=== PATIENT | male | born 1985 ===

== ENCOUNTER 2017-01-28 03:03 | Emergency (ER) | payer OTHER ==
--- NOTE | 2017-01-28 03:37 | ED PDOC ---
HPI: General Adult Time Seen by Provider: 01/28/17 03:18 History Per: Patient Additional Complaint(s): Pt. states approximately 1-2 weeks ago he was walking when he suddenly felt a "pop" in the R knee and has had progressively worsening pain in the same knee. Reports that today at work pain in the knee worsened. States he spends all day on his feet. Also states for approximately the same time he's had bright red stools that he notices in the toilet and mostly when he wipes and also has dysuria but no hematuria. Further reports that his stools have been very hard. last BM was 3 days ago. Of note, pt. states he is HIV positive and had his CD4 and viral load checked in 12/2016 and were WNL. Denies abdominal pain, N/V/D, melena, hematochezia, fever, incontinence, back pain, flank pain, weakness, blunt trauma, calf pain, SOB, palpitations, fever, eye pain, eye discharge. Past Medical History Reviewed: Historical Data, Nursing Documentation, Vital Signs Vital Signs: Last Vital Signs Temp 98.0 F 01/28/17 03:38 Pulse 111 H 01/28/17 03:38 Resp 16 01/28/17 03:38 BP 122/76 01/28/17 03:38 Pulse Ox 98 01/28/17 03:38 - Medical History PMH: HIV - Surgical History Surgical History: Cholecystectomy - Family History Family History: States: No Known Family Hx - Home Medications Home Medications: Ambulatory Orders Medication Instructions Recorded Docusate [Colace] 1 cap PO BID PRN #30 cap 01/28/17 Naproxen [Naprosyn] 500 mg PO BID PRN #30 tab 01/28/17 Polyethylene Glycol 3350 [Miralax] 1 packet PO DAILY PRN #30 each 01/28/17 - Allergies Allergies/Adverse Reactions: Allergies Allergy/AdvReac Type Severity Reaction Status Date / Time No Known Allergies Allergy Verified 01/28/17 03:38 Review of Systems ROS Statement: Except As Marked, All Systems Reviewed And Found Negative Gastrointestinal: Positive for: Constipation. Negative for: Rectal Pain Genitourinary Male: Positive for: Dysuria Physical Exam - Reviewed Nursing Documentation Reviewed: Yes Vital Signs Reviewed: Yes - Physical Exam Appears: Positive for: Well, Non-toxic, No Acute Distress Head Exam: Positive for: ATRAUMATIC, NORMAL INSPECTION, NORMOCEPHALIC Skin: Positive for: Normal Color, Warm. Negative for: Rash Eye Exam: Positive for: EOMI, Normal appearance, PERRL ENT: Positive for: Normal ENT Inspection Neck: Positive for: Normal, Painless ROM Cardiovascular/Chest: Positive for: Regular Rate, Rhythm Respiratory: Positive for: CNT, Normal Breath Sounds Pulses-Dorsalis Pedis (L): 2+ Pulses-Dorsalis Pedis (R): 2+ Gastrointestinal/Abdominal: Positive for: Normal Exam, Bowel Sounds, Soft. Negative for: Tenderness, Distended Back: Positive for: Normal Inspection. Negative for: L CVA Tenderness, R CVA Tenderness Rectal: Positive for: Rectal Tone Is: (intact), Blood Streaked Stool. Negative for: Black Stool, Hemorrhoids, Mass, Tenderness Extremity: Positive for: Other (R knee with moderate swelling and tenderness on anterior surface without warmth, erythema, break in skin integrity; limited ROM secondary to pain) Neurologic/Psych: Positive for: Alert, Oriented - Laboratory Results Result Diagrams: 01/28/17 04:11 01/28/17 04:11 Urine dip results: Negative for: Leukocyte Esterase, Blood - Progress ED Course And Treament: Knee x-ray: no fx Obstructive series: FOS; no obstruction 0430 Pt. informed of results and instructed to f/u with ortho. Knee immobilizer and crutches ordered. Disposition - Clinical Impression Clinical Impression: Knee injury, Constipation - Patient ED Disposition Is Patient to be Admitted: No - Disposition Referrals: [facility] [Outside] Cheng Escamilla III, MD [Staff Provider] - Disposition: Routine/Home Disposition Time: 04:39 Condition: STABLE Additional Instructions: Follow up with your PMD and an orthopedist for further evaluation. Prescriptions: Docusate [Colace] 1 cap PO BID PRN #30 cap PRN Reason: Constipation Naproxen [Naprosyn] 500 mg PO BID PRN #30 tab PRN Reason: Pain Polyethylene Glycol 3350 [Miralax] 1 packet PO DAILY PRN #30 each PRN Reason: Constipation Instructions: Constipation (ED), Knee Sprain (ED), Knee Immobilizer (ED), Crutch Instructions (ED) Forms: [employer] (Divehi) Print Language: MOZAMBICAN
[2017-01-28 03:39] VITALS: BMI 24.9
[2017-01-28 03:40] VITALS: BP 122/76; PULSE 111; RESP 16; TEMP 98; O2SAT 98
[2017-01-28 04:15] LABS: BASO % 0.3 % (0.0-2.0); EOS % 0.3 % (0.0-4.0); HEMATOCRIT 40.4 % (35.0-51.0); LYMPH # 2.2 K/uL (1.0-4.3); LYMPH % 20.5 % (20.0-40.0); MEAN CELL VOLUME 89.2 fl (80.0-94.0); MEAN CORPUSCULAR HEMOGLOBIN 31.8 pg (27.0-31.0); MEAN CORPUSCULAR HGB CONC 35.6 g/dL (33.0-37.0); MEAN PLATELET VOLUME 7.6 fl (7.2-11.7); MONO # 1.2 K/uL (0.0-0.8); MONO % 10.9 % (0.0-10.0); NEUT # 7.2 K/uL (1.8-7.0); NRBC % 0.1 % (0.0-0.0); RED CELL DISTRIBUTION WIDTH 12.8 % (11.5-14.5); WHITE BLOOD COUNT 10.6 K/uL (4.8-10.8)
[2017-01-28 04:25] LABS: ALB/GLOB RATIO 1.2 (1.0-2.1); ALKALINE PHOSPHATASE 87 U/L (38-126); ALT/SGPT 47 U/L (21-72); AST/SGOT 40 U/L (17-59); BILIRUBIN,TOTAL 0.7 mg/dl (0.2-1.3); BLOOD UREA NITROGEN 13 mg/dl (9-20); CALCIUM 9.3 mg/dL (8.4-10.2); CARBON DIOXIDE 25 mmol/L (22-30); CHLORIDE 102 mmol/L (98-107); GFR AFRICAN-AMERICAN > 60; GLUCOSE,RANDOM 106 mg/dL (75-110); SODIUM 138 mmol/l (132-148); TOTAL PROTEIN 8.6 G/DL (6.3-8.2)
--- NOTE | 2017-01-28 11:05 | RAD ---
PROCEDURE: Radiographs of the chest and abdomen (obstructive series) HISTORY: abdominal pain COMPARISON: No prior. TECHNIQUE: AP radiograph of the chest, with upright and supine radiographs of the abdomen. FINDINGS: CHEST: Lungs: The lungs are well inflated and clear. Cardiovascular: Normal size heart. No pulmonary vascular congestion. Pleura: No pleural fluid. No pneumothorax. Other findings: None. ABDOMEN AND PELVIS: Bowel: There is moderate amount of stool in the colon. The bowel gas pattern is nonobstructive. No differential air-fluid levels. Free air: None. Bones: Unremarkable. Other findings: Surgical clips in the right upper quadrant are related to prior cholecystectomy. IMPRESSION: Constipation. No evidence of mechanical bowel obstruction. Clear lungs.
--- NOTE | 2017-01-28 11:06 | RAD ---
PROCEDURE: Right Knee Radiographs. Was HISTORY: Pain COMPARISON: None. FINDINGS: BONES: Bone alignment and mineralization are normal. There is no acute displaced fracture or bone destruction. JOINTS: Normal. No osteoarthritis. JOINT EFFUSION: There is a small suprapatellar joint effusion. OTHER FINDINGS: None. IMPRESSION: No acute fracture or dislocation. Small suprapatellar joint effusion.
== END 2017-01-28 05:19 | disposition home or self-care (01) ==
LOC: H.ER 03:03
DX: K59.00 Constipation, unspecified (principal); S89.91XA Unspecified injury of right lower leg, initial encounter; X58.XXXA Exposure to other specified factors, initial encounter
CPT/HCPCS: 29530; 73562; 74022; 80053; 85025; 87086; 87491; 87591; 96374; 99282; G0328; J1885; L1830

== ENCOUNTER 2017-09-06 15:19 | Emergency (ER) | payer MEDICAID, SELFPAY ==
[2017-09-06 15:19] VITALS: BMI 24.9
[2017-09-06 16:00] VITALS: RESP 20
--- NOTE | 2017-09-06 16:46 | ED PDOC ---
HPI: Abdomen Chief Complaint (Provider): Abdominal pain, and diarrheas History Per: Patient History/Exam Limitations: no limitations Onset/Duration Of Symptoms: Days Outside of [place] travel?: No <Ingrid Nance - Last Filed: 09/06/17 18:49> <Sachin Francis III - Last Filed: 09/06/17 19:01> Chief Complaint (Nursing): Abdominal Pain Additional Complaint(s): 32 y/o male with h/o HIV infection without AIDS presents to ED complaining of 2 weeks of diarrheas associated with lower abdominal cramps. Patient states he started having watery non bloody diarrheas 2 weeks ago after he ate [place] food , associated with abdominal cramps, chills, nausea. Denies fevers, vomiting, urinary symptoms. States he took one Imodium last Tuesday, his diarrheas decreased for 2-3 days, however still having them, then his diarrheas came back yesterday. Denies any diarrheas or lower abdominal cramps today, because he has not eaten any meal today . Reports that his PCP at [facility] recently checked his CD4/ viral load, and he was undetectable, and normal CD4 count. PMD: Dr. Zuniga (Ingrid Nance) Supervising Attending Note <Ingrid Nance - Last Filed: 09/06/17 18:49> - Attestation: I have personally seen and examined this patient.: Yes I have fully participated in the care of the patient.: Yes I have reviewed all pertinent clinical information: Yes <Sachin Francis III - Last Filed: 09/06/17 19:01> - Notes: Notes:: pt seen and examined agree with all resident findings Re-eval at 7p denies pain feels better s/p LR bolus potassium replaced orally Followup stool studies as outpatient Given HIV start empiric flagyl for now pending stool studies (Sachin Francis III) Past Medical History - Medical History PMH: HIV - Surgical History Surgical History: Cholecystectomy - Family History Family History: States: Unknown Family Hx - Social History Current smoker - smoking cessation education provided: Yes (social) Alcohol: None Drugs: Denies <Ingrid Nance - Last Filed: 09/06/17 18:49> <Sachin Francis III - Last Filed: 09/06/17 19:01> Vital Signs: Last Vital Signs Temp 98.2 F 09/06/17 15:57 Pulse 78 09/06/17 15:57 Resp 20 09/06/17 15:57 BP 130/81 09/06/17 15:57 Pulse Ox 100 09/06/17 18:50 - Home Medications Home Medications: Ambulatory Orders Medication Instructions Recorded Docusate [Colace] 1 cap PO BID PRN #30 cap 01/28/17 Naproxen [Naprosyn] 500 mg PO BID PRN #30 tab 01/28/17 Polyethylene Glycol 3350 [Miralax] 1 packet PO DAILY PRN #30 each 01/28/17 Loperamide [Loperamide HCl] 2 mg PO TID PRN #12 cap 09/06/17 metroNIDAZOLE [Flagyl] 500 mg PO TID #21 tab 09/06/17 - Allergies Allergies/Adverse Reactions: Allergies Allergy/AdvReac Type Severity Reaction Status Date / Time No Known Allergies Allergy Verified 09/06/17 15:55 Review of Systems ROS Statement: Except As Marked, All Systems Reviewed And Found Negative (as per HPI) <Ingrid Nance - Last Filed: 09/06/17 18:49> Physical Exam - Reviewed Nursing Documentation Reviewed: Yes Vital Signs Reviewed: Yes - Physical Exam Appears: Positive for: Non-toxic Skin: Positive for: Normal Color, Warm, Dry Eye Exam: Positive for: Normal appearance ENT: Negative for: Nasal Congestion, Pharyngeal Erythema, Tonsillar Exudate Neck: Positive for: Normal, Supple Cardiovascular/Chest: Positive for: Regular Rate, Rhythm. Negative for: Chest Non Tender, Edema, Bradycardia, Tachycardia Respiratory: Positive for: Normal Breath Sounds. Negative for: Decreased Breath Sounds, Accessory Muscle Use, Crackles, Rales, Rhonchi, Wheezing, Respiratory Distress, Plerual Rub Gastrointestinal/Abdominal: Positive for: Bowel Sounds (present), Soft, Tenderness (mild tender to palpation of LLQ). Negative for: Distended Back: Positive for: Normal Inspection. Negative for: L CVA Tenderness, R CVA Tenderness Extremity: Positive for: Capillary Refill (<2). Negative for: Pedal Edema, Calf Tenderness Neurologic/Psych: Positive for: Alert, Oriented <Ingrid Nance - Last Filed: 09/06/17 18:49> - Laboratory Results Result Diagrams: 09/06/17 16:52 09/06/17 16:52 - ECG O2 Sat by Pulse Oximetry: 100 <Ingrid Nance - Last Filed: 09/06/17 18:49> - Laboratory Results Result Diagrams: 09/06/17 16:52 09/06/17 16:52 <Sachin Francis III - Last Filed: 09/06/17 19:01> Medical Decision Making <Ingrid Nance - Last Filed: 09/06/17 18:49> <Sachin Francis III - Last Filed: 09/06/17 19:01> Medical Decision Making: Diarrheas -afebrile -CD4 count on 08/16/17 >800 -Viral load on 08/16/17 undetectable -CBC, CMP, Lipase, LDH, UA -stool cultures, ova and parasite, c diff case discussed with Dr. Francis Re-evaluation labs reviewed with Dr. Francis labs significant for slight low potassium, elevated LFTs UA WNL -give potassium Chl 20 meq PO once -give ringer 1L IV once -check hepatitis acute panel (Ingrid Nance) Disposition - Patient ED Disposition Is Patient to be Admitted: Transfer of Care Discussed With .: Sachin Francis III - Disposition Disposition: Transfer of Care Disposition Time: 18:50 Patient Signed Over To: Sachin Francis III <Ingrid Nance - Last Filed: 09/06/17 18:49> <Sachin Francis III - Last Filed: 09/06/17 19:01> - Clinical Impression Clinical Impression: Abdominal pain, Diarrhea - Disposition Referrals: Francia Zuniga MD [Family Provider] - Condition: STABLE Additional Instructions: Drink plenty of fluids, avoid dairy, start flagyl empirically until cultures return, see Dr Zuniga in 3-4 days or return to ER for any worse or new symptoms. Prescriptions: Loperamide [Loperamide HCl] 2 mg PO TID PRN #12 cap PRN Reason: Diarrhea metroNIDAZOLE [Flagyl] 500 mg PO TID #21 tab Instructions: Diarrhea in Adolescents and Adults Forms: [employer] (Yoruba)
[2017-09-06 16:59] LABS: BASO % 0.4 % (0.0-2.0); EOS # 0.1 K/uL (0.0-0.7); EOS % 1.6 % (0.0-4.0); HEMOGLOBIN 14.4 g/dL (12.0-18.0); LYMPH # 2.9 K/uL (1.0-4.3); LYMPH % 39.7 % (20.0-40.0); MEAN CELL VOLUME 92.5 fl (80.0-94.0); MEAN CORPUSCULAR HEMOGLOBIN 32.1 pg (27.0-31.0); MEAN CORPUSCULAR HGB CONC 34.7 g/dL (33.0-37.0); MEAN PLATELET VOLUME 7.7 fl (7.2-11.7); MONO # 0.6 K/uL (0.0-0.8); MONO % 8.6 % (0.0-10.0); NEUT # 3.6 K/uL (1.8-7.0); NEUT % 49.7 % (50.0-75.0); RBC 4.48 Mil/uL (4.40-5.90); WHITE BLOOD COUNT 7.3 K/uL (4.8-10.8)
[2017-09-06 17:14] LABS: ALB/GLOB RATIO 1.3 (1.0-2.1); ALBUMIN 4.5 g/dL (3.5-5.0); ALT/SGPT 118 U/L (21-72); AST/SGOT 95 U/L (17-59); BLOOD UREA NITROGEN 7 mg/dl (9-20); CALCIUM 9.3 mg/dL (8.4-10.2); GFR AFRICAN-AMERICAN > 60; GFR NON-AFRICAN AMERICAN > 60; LIPASE 191 U/L (23-300)
[2017-09-06 17:49] LABS: URINE BILIRUBIN NEGATIVE (NEGATIVE); URINE BLOOD NEGATIVE (NEGATIVE); URINE CLARITY CLEAR (Clear); URINE COLOR STRAW (YELLOW); URINE GLUCOSE (UA) NEG (Normal); URINE LEUKOCYTE ESTERASE NEG Leu/uL (Negative); URINE PROTEIN NEGATIVE (NEGATIVE); URINE UROBILINOGEN 0.2-1.0 mg/dL (0.2-1.0)
[2017-09-06] MEDS ORDERED: Lactated Ringer's 1,000 ML IV SCH (18:15)
[2017-09-06] MEDS ORDERED: Potassium Chloride 20 mEq ER Tab PO ONE (18:36)
[2017-09-06 19:12] VITALS: BP 120/70; PULSE 70; TEMP 98; O2SAT 98
[2017-09-07 16:29] LABS: HEPATITIS B SURFACE AG Negative (NEGATIVE)
[2017-09-07 16:35] LABS: HEPATITIS A IGM NEGATIVE (NEGATIVE); HEPATITIS B CORE AB NEGATIVE (NEGATIVE)
[2017-09-07 16:47] LABS: HEPATITIS C ANTIBODY NEGATIVE (NEGATIVE)
== END 2017-09-06 19:12 | disposition home or self-care (01) ==
LOC: H.ER 15:19
DX: R10.9 Unspecified abdominal pain (principal); R19.7 Diarrhea, unspecified; B20 Human immunodeficiency virus [HIV] disease
CPT/HCPCS: 80053; 80074; 81003; 83615; 83690; 85025; 87045; 87177; 87209; 87230; 96360; 99283; J7120

== ENCOUNTER 2017-12-09 18:54 | Inpatient (IN) | payer MEDICAID, SELFPAY ==
[2017-12-09 18:54] VITALS: BMI 24.9
[2017-12-09] MEDS ORDERED: Sodium Chloride 0.9% 1,000 ML IV STA (20:39)
[2017-12-09] MEDS ORDERED: Morphine 4 MG/ML VIAL ONE (20:55)
[2017-12-09] MEDS ORDERED: Vancomycin 1 g Inj ONE (20:55)
--- NOTE | 2017-12-09 20:56 | ED PDOC ---
Addendum entered and electronically signed by Garima Collins PA 12/17/17 18:36: Physical Exam - Physical Exam Appears: Non-toxic, No Acute Distress Skin: Normal Color, Warm, Dry Head: Atraumatic, Normacephalic Eye(s): bilateral: Normal Inspection, PERRL, EOMI Nose: Normal Throat: Normal Neck: Normal, Normal ROM Cardiovascular: Rhythm Regular, No Murmur Respiratory: Normal Breath Sounds Gastrointestinal/Abdominal: Normal Exam, Soft, No Tenderness Back: Normal Inspection Extremity: Normal ROM, Other (Left Gluteal Region: 4 cm region of induration with surround erythema approximately 6 cm in dimeter; drainage noted) Neurological/Psych: Oriented x3 Addendum entered and electronically signed by Garima Collins PA 12/17/17 18:33: Review Of Systems Except As Marked, All Systems Reviewed And Found Negative. Constitutional: Positive for: Fever, Chills Musculoskeletal: Positive for: Other (pain to left gluteal region ) Original Note: HPI: General Adult Time Seen by Provider: 12/09/17 20:39 Chief Complaint (Nursing): Abnormal Skin Integrity Chief Complaint (Provider): abscess/cellulitis History Per: Patient (32 y/o male HIV positive undetectable viral load here with large abscess left gluteal region x 3 days now associated with fever. Patient took alleve yesterday. Denies any vomiting.) Past Medical History Vital Signs: Last Vital Signs Temp 101.2 F H 12/09/17 19:34 Pulse 132 H 12/09/17 19:34 Resp 18 12/09/17 19:34 BP 116/72 12/09/17 19:34 Pulse Ox 99 12/09/17 19:34 - Medical History PMH: HIV - Surgical History Surgical History: Cholecystectomy - Family History Family History: States: Unknown Family Hx - Home Medications Home Medications: Ambulatory Orders Medication Instructions Recorded Docusate [Colace] 1 cap PO BID PRN #30 cap 01/28/17 Naproxen [Naprosyn] 500 mg PO BID PRN #30 tab 01/28/17 Polyethylene Glycol 3350 [Miralax] 1 packet PO DAILY PRN #30 each 01/28/17 Loperamide [Loperamide HCl] 2 mg PO TID PRN #12 cap 09/06/17 metroNIDAZOLE [Flagyl] 500 mg PO TID #21 tab 09/06/17 Elviteg/Cob/Emtri/Tenof Alafen 1 tab PO DAILY 12/09/17 [Genvoya Tablet] - Allergies Allergies/Adverse Reactions: Allergies Allergy/AdvReac Type Severity Reaction Status Date / Time No Known Allergies Allergy Verified 09/06/17 15:55 - Laboratory Results Result Diagrams: 12/09/17 20:54 12/09/17 20:54 - ECG O2 Sat by Pulse Oximetry: 99 - Progress ED Course And Treament: ns 1 liter 500ml per hour vancomycin 1 gm iv x 1 dose morphine 4 mg iv x 1 dose d/w surg resident. d/w Dr. Minaya for admission for bacteremia/celullitis Disposition - Clinical Impression Clinical Impression: Cellulitis, Abscess, gluteal, left - Patient ED Disposition Is Patient to be Admitted: Yes - Disposition Disposition Time: 22:39 Condition: FAIR
[2017-12-09 20:59] LABS: BASO % 0.2 % (0.0-2.0); EOS % 0.2 % (0.0-4.0); HEMOGLOBIN 14.2 g/dL (12.0-18.0); LYMPH # 2.5 K/uL (1.0-4.3); LYMPH % 13.1 % (20.0-40.0); MEAN CELL VOLUME 93.5 fl (80.0-94.0); MEAN CORPUSCULAR HGB CONC 34.3 g/dL (33.0-37.0); MEAN PLATELET VOLUME 8.2 fl (7.2-11.7); MONO # 1.2 K/uL (0.0-0.8); NEUT # 15.5 K/uL (1.8-7.0); NEUT % 80.5 % (50.0-75.0); RBC 4.45 Mil/uL (4.40-5.90); RED CELL DISTRIBUTION WIDTH 13.4 % (11.5-14.5); WHITE BLOOD COUNT 19.2 K/uL (4.8-10.8)
[2017-12-09 20:59] LABS: VENOUS BLOOD GAS BASE EXCESS 2.7 mmol/L (0.0-2.0); VENOUS BLOOD GAS PCO2 50 mmHg (40-60); VENOUS BLOOD GAS PO2 37 mm/Hg (30-55); VENOUS BLOOD PH 7.37 (7.32-7.43)
[2017-12-09 21:07] LABS: BLOOD UREA NITROGEN 11 mg/dl (9-20); CALCIUM 9.1 mg/dL (8.4-10.2); GFR NON-AFRICAN AMERICAN > 60
--- NOTE | 2017-12-09 21:28 | CP.PCM.CON ---
<Juan Guthrie - Last Filed: 12/10/17 08:51> History of Present Illness - History of Present Illness History of Present Illness: General Surgery Consult Note for Dr. Collins Reason for Consult: L gluteal abscess 32 M with PMH of HIV presents to [facility] for complaint of L gluteal pain and swelling. Patient was seen and examined in the ED. Patient states that his symptoms began Tuesday. The area began as the size of a ping pong ball then progressively gotten worse over 4 days. Patient reports to never experiencing this before. Patient had been using warm compresses and soaks. He reports to jo colbert to pop it bu not much came out. He states that it did eventually draining from the small opening last couple days. Patient last had CD4+ resulted in September (674). His viral load at that time was <1.30. Patient was positive for RPR in August though. Patient rates pain as severe. He describes it as constant and sharp located in left glute without radiation. He reports certain positions and movement aggravates his symptoms while nothing alleviates it. Admits to fever/chills and constipation. His last BM was on Tuesday/Tuesday. Denies chest pain , SOB, coough, sputum production, palpitations, abdominal pain, nausea/vomiting, diarrhea. PMD: [facility]SC PMH: HIV, Vitamin D deficiency Meds: Anti-viral, vitamin D ALL: NKDA PSH: Cholecystectomy FH: DM Social: social tobacco/Etoh use, use marijuana, history of cocaine and crystal meth use Review of Systems - Review of Systems All systems: reviewed and no additional remarkable complaints except (as per HPI) Past Patient History - Past Social History Smoking Status: Never Smoked - HEMATOLOGICAL/ONCOLOGICAL Hx Human Immunodeficiency Virus (HIV): Yes - PSYCHIATRIC Hx Substance Use: No - SURGICAL HISTORY Hx Cholecystectomy: Yes - ANESTHESIA Hx Anesthesia Reactions: No Hx Malignant Hyperthermia: No Meds Allergies/Adverse Reactions: Allergies Allergy/AdvReac Type Severity Reaction Status Date / Time No Known Allergies Allergy Verified 09/06/17 15:55 - Medications Medications: Current Medications Vancomycin HCl 1 gm/ Sodium (Chloride) 250 mls @ 166.667 mls/hr IVPB STAT STA; Protocol Stop: 12/09/17 22:06 Last Admin: 12/09/17 20:58 Dose: 166.667 mls/hr Sodium Chloride (Sodium Chloride 0.9%) 1,000 mls @ 500 mls/hr IV .Q2H STA Stop: 12/09/17 22:38 Last Admin: 12/09/17 21:02 Dose: 500 mls/hr Physical Exam - Constitutional Appears: Other (uncomfortable) - Head Exam Head Exam: ATRAUMATIC, NORMOCEPHALIC - Eye Exam Eye Exam: EOMI, Normal appearance - ENT Exam ENT Exam: Mucous Membranes Moist - Neck Exam Neck exam: Positive for: Normal Inspection - Respiratory Exam Respiratory Exam: NORMAL BREATHING PATTERN - Cardiovascular Exam Cardiovascular Exam: REGULAR RHYTHM - GI/Abdominal Exam GI & Abdominal Exam: Soft. absent: Tenderness - Rectal Exam Rectal Exam: NORMAL INSPECTION Additional comments: Left glute: ~10 cm diameter of erythema, edema, induration, small opening on medial glute with small amount of pus and blood draining - Extremities Exam Extremities exam: Positive for: normal capillary refill, pedal pulses present. Negative for: calf tenderness - Back Exam Back exam: absent: CVA tenderness (L), CVA tenderness (R) - Neurological Exam Neurological exam: Alert, Oriented x3 - Psychiatric Exam Psychiatric exam: Normal Affect, Normal Mood - Skin Skin Exam: Dry, Warm Results - Vital Signs Recent Vital Signs: Last Vital Signs Temp 101.2 F H 12/09/17 19:34 Pulse 132 H 12/09/17 19:34 Resp 18 12/09/17 19:34 BP 116/72 12/09/17 19:34 Pulse Ox 99 12/09/17 21:21 - Labs Result Diagrams: 12/10/17 05:30 12/10/17 05:30 Labs: Laboratory Results - last 24 hr 12/09/17 12/09/17 12/09/17 20:49 20:54 20:54 WBC 19.2 H D RBC 4.45 Hgb 14.2 Hct 41.6 MCV 93.5 MCH 32.0 H MCHC 34.3 RDW 13.4 Plt Count 238 MPV 8.2 Neut % (Auto) 80.5 H Lymph % (Auto) 13.1 L [place] % (Auto) 6.0 Eos % (Auto) 0.2 Baso % (Auto) 0.2 Neut # (Auto) 15.5 H Lymph # (Auto) 2.5 [place] # (Auto) 1.2 H Eos # (Auto) 0.0 Baso # (Auto) 0.0 pO2 37 VBG pH 7.37 VBG pCO2 50 VBG HCO3 26.3 VBG Total CO2 30.4 H VBG Base Excess 2.7 H VBG Potassium 3.8 Sodium 140.0 139 Chloride 96.0 L 102 Glucose 95 Lactate 1.8 FiO2 21.0 Potassium 4.5 Carbon Dioxide 31 H Anion Gap 11 BUN 11 Creatinine 0.9 Est GFR ( Amer) > 60 Est GFR (Non-Af Amer) > 60 Random Glucose 98 Calcium 9.1 Venous Blood Potassium 3.8 Assessment & Plan - Assessment and Plan (Free Text) Assessment: 32 M with PMH of HIV presents with left gluteal abscess Plan: -NPO -IV fluids -IV abx -Recommend ID consult -Analgesics PRN -f/u CT abd/pelvis with IV contrast -Plan for bedside I&D after CT results -Further recommendations as per Dr. Dennis uGthrie PGY2 - Date & Time Date: 12/09/17 Time: 22:00 <Judit Collins - Last Filed: 12/10/17 17:30> Meds - Medications Medications: Current Medications Acetaminophen (Tylenol 325mg Tab) 650 mg PO Q6 PRN PRN Reason: Fever >100.4 F Cholecalciferol (Vitamin D) 2,000 intlu PO DAILY [facility] Last Admin: 12/10/17 08:51 Dose: 2,000 intlu Home Med (Elviteg/Cob/Emtri/Tenof Alafen [Genvoya Tablet]) 1 tab PO DAILY TRU Lactated Ringer's (Lactated Ringer's) 1,000 mls @ 105 mls/hr IV .Q9H32M TRU Last Admin: 12/10/17 16:56 Dose: Not Given Vancomycin HCl 1 gm/ Sodium (Chloride) 250 mls @ 166.667 mls/hr IVPB Q12 TRU; Protocol Last Admin: 12/10/17 08:50 Dose: 166.667 mls/hr Piperacillin Sod/Tazobactam (Sod 3.375 gm/ Sodium Chloride) 100 mls @ 100 mls/hr IVPB Q6 TRU; Protocol Last Admin: 12/10/17 16:56 Dose: 100 mls/hr Morphine Sulfate (Morphine) 2 mg IVP Q4 PRN PRN Reason: Pain, severe (8-10) Last Admin: 12/10/17 01:42 Dose: 2 mg Results - Vital Signs Recent Vital Signs: Last Vital Signs Temp 97.8 F 12/10/17 15:56 Pulse 83 12/10/17 15:56 Resp 18 12/10/17 15:56 BP 95/55 L 12/10/17 15:56 Pulse Ox 99 12/10/17 15:56 - Labs Result Diagrams: 12/10/17 05:30 12/10/17 05:30 Labs: Laboratory Results - last 24 hr 12/09/17 12/09/17 12/09/17 20:49 20:54 20:54 WBC 19.2 H D RBC 4.45 Hgb 14.2 Hct 41.6 MCV 93.5 MCH 32.0 H MCHC 34.3 RDW 13.4 Plt Count 238 MPV 8.2 Neut % (Auto) 80.5 H Lymph % (Auto) 13.1 L [place] % (Auto) 6.0 Eos % (Auto) 0.2 Baso % (Auto) 0.2 Neut # (Auto) 15.5 H Lymph # (Auto) 2.5 [place] # (Auto) 1.2 H Eos # (Auto) 0.0 Baso # (Auto) 0.0 PT INR APTT pO2 37 VBG pH 7.37 VBG pCO2 50 VBG HCO3 26.3 VBG Total CO2 30.4 H VBG Base Excess 2.7 H VBG Potassium 3.8 Sodium 140.0 139 Chloride 96.0 L 102 Glucose 95 Lactate 1.8 FiO2 21.0 Potassium 4.5 Carbon Dioxide 31 H Anion Gap 11 BUN 11 Creatinine 0.9 Est GFR ( Amer) > 60 Est GFR (Non-Af Amer) > 60 Random Glucose 98 Calcium 9.1 Phosphorus Magnesium Total Bilirubin AST ALT Alkaline Phosphatase Total Protein Albumin Globulin Albumin/Globulin Ratio Venous Blood Potassium 3.8 12/09/17 12/10/17 12/10/17 23:10 05:30 05:30 WBC 15.9 H RBC 3.83 L Hgb 12.3 Hct 36.0 MCV 93.8 MCH 32.1 H MCHC 34.3 RDW 13.4 Plt Count 198 MPV 8.1 Neut % (Auto) 78.5 H Lymph % (Auto) 12.7 L [place] % (Auto) 8.3 Eos % (Auto) 0.3 Baso % (Auto) 0.2 Neut # (Auto) 12.5 H Lymph # (Auto) 2.0 [place] # (Auto) 1.3 H Eos # (Auto) 0.0 Baso # (Auto) 0.0 PT 14.9 H INR 1.3 APTT 31.9 pO2 VBG pH VBG pCO2 VBG HCO3 VBG Total CO2 VBG Base Excess VBG Potassium Sodium Chloride Glucose Lactate FiO2 Potassium Carbon Dioxide Anion Gap BUN Creatinine Est GFR ( Amer) Est GFR (Non-Af Amer) Random Glucose Calcium Phosphorus Magnesium Total Bilirubin AST ALT Alkaline Phosphatase Total Protein Albumin Globulin Albumin/Globulin Ratio Venous Blood Potassium 12/10/17 05:30 WBC RBC Hgb Hct MCV MCH MCHC RDW Plt Count MPV Neut % (Auto) Lymph % (Auto) [place] % (Auto) Eos % (Auto) Baso % (Auto) Neut # (Auto) Lymph # (Auto) [place] # (Auto) Eos # (Auto) Baso # (Auto) PT INR APTT pO2 VBG pH VBG pCO2 VBG HCO3 VBG Total CO2 VBG Base Excess VBG Potassium Sodium 141 Chloride 107 Glucose Lactate FiO2 Potassium 4.1 Carbon Dioxide 31 H Anion Gap 7 L BUN 8 L Creatinine 0.9 Est GFR ( Amer) > 60 Est GFR (Non-Af Amer) > 60 Random Glucose 108 Calcium 8.8 Phosphorus 3.6 Magnesium 2.2 Total Bilirubin 0.6 AST 276 H D ALT 116 H D Alkaline Phosphatase 83 Total Protein 6.7 Albumin 3.4 L D Globulin 3.3 Albumin/Globulin Ratio 1.0 Venous Blood Potassium Assessment & Plan - Assessment and Plan (Free Text) Plan: I personally saw and examined the patient with the resident staff and agree with the above assessment and plan. I personally reviewed the available diagnostic images and imaging reports. 32 M HIV on antiretrovirals, CD4>600, CT with soft tissue inflammation left perineum and over gluteus. No perirectal abscess or collections. Cont. IV abx, ID consult. I+D to previously draining site, warm compress, pain control.
[2017-12-09] MEDS ORDERED: Piperacillin/Tazobact 3.375 gm Inj IVPB ONE (23:02)
[2017-12-09] MEDS: Piperacillin/Tazobact 3.375 GM in Sodium Chloride 0.9% 100 ML IVPB SCH (23:05)
[2017-12-09] MEDS: Lactated Ringer's 1,000 ML IV SCH (23:06)
--- NOTE | 2017-12-09 23:07 | CP.PCM.HP ---
History of Present Illness - History of Present Illness History of Present Illness: CC: left gluteal abscess HPI: 32 y/o man w/ pmh of HIV (not AIDS) presents to the ED w/ left gluteal abscess. Patient reports he noticed a left gluteal marble sized boil 4-5 days ago. Patient though it may have been an ingrown hair and was trying to pull the hairs around it. Patient also tried self treatment w/ epsom salt soak and massage to pop the boil. Patient then noticed subjective fevers 2 days ago w/ associated chills and cold sweats. Patient reports pain is sharp in nature, localized but can radiate up to back if he sits on it by accident. Patient denies nausea, vomiting, diarrhea, dysuria, headaches, chest pain, SOB, recent illness, recent travel, or sick contacts. Patient reports last bowel movement was 5-6 days ago but was normal and non-bloody. ED course: vitals: 101.2 F, 132 beats/min, 116/72, resp 18, O2 99% room air CBC: 19.2>14.2/41.6<238 BMP: 139/4.5, 102/31, 11/0.9, glucose 98 VBG: pO2 37, pH 7.37, pCO2 50,HCO3 26.3, lactate 1.8 tylenol 975 mg PO once morphine 4 mg IV once vancomycin 1 gm IV once IVF NS 500 mL/hr CT abdomen/pelvis: pending PMD: Dr. Zuniga PMH: HIV (not AIDS) meds: genvoya [phone] mg once daily, vitamin D3 2000 units PO daily PSH: cholecystectomy 12/2015 Fam: DM2 grandmother on mother's side SOC: smokes 1-2 cigarette socially, drinks socially, used cocaine 7 months ago, smoked marijuana 4 months ago, took crystal meth 2 months ago ROS: 12 points assessed and negative unless otherwise reported in HPI Present on Admission - Present on Admission Any Indicators Present on Admission: No History of DVT/PE: No History of Uncontrolled Diabetes: No Urinary Catheter: No Decubitus Ulcer Present: No Review of Systems - Review of Systems All systems: reviewed and no additional remarkable complaints except - Constitutional Constitutional: As Per HPI, Chills, Fever, Night Sweats. absent: Headache - EENT Eyes: absent: Change in Vision - Cardiovascular Cardiovascular: absent: Chest Pain - Respiratory Respiratory: absent: Cough, Dyspnea - Gastrointestinal Gastrointestinal: absent: Abdominal Pain, Diarrhea, Nausea, Vomiting - Genitourinary Genitourinary: absent: Dysuria - Integumentary Integumentary: As Per HPI, Rash, Swelling - Neurological Neurological: absent: Dizziness, Headaches Past Patient History - Past Social History Smoking Status: Never Smoked - HEMATOLOGICAL/ONCOLOGICAL Hx Human Immunodeficiency Virus (HIV): Yes - PSYCHIATRIC Hx Substance Use: No - SURGICAL HISTORY Hx Cholecystectomy: Yes - ANESTHESIA Hx Anesthesia Reactions: No Hx Malignant Hyperthermia: No Meds Allergies/Adverse Reactions: Allergies Allergy/AdvReac Type Severity Reaction Status Date / Time No Known Allergies Allergy Verified 09/06/17 15:55 Physical Exam - Constitutional Appears: Non-toxic, No Acute Distress - Head Exam Head Exam: ATRAUMATIC, NORMAL INSPECTION, NORMOCEPHALIC - Eye Exam Eye Exam: Normal appearance - ENT Exam ENT Exam: Mucous Membranes Moist - Neck Exam Neck exam: Positive for: Full Rom. Negative for: Tenderness - Respiratory Exam Respiratory Exam: Clear to Auscultation Bilateral, NORMAL BREATHING PATTERN. absent: Accessory Muscle Use, Decreased Breath Sounds, Rales, Rhonchi, Wheezes, Respiratory Distress - Cardiovascular Exam Cardiovascular Exam: REGULAR RHYTHM, RRR, +S1, +S2. absent: Tachycardia - GI/Abdominal Exam GI & Abdominal Exam: Normal Bowel Sounds, Soft. absent: Distended, Tenderness - Rectal Exam Additional comments: left gluteal draining abscess, draining serosanguinous fluid, surrounding satellite erythema, induration, edema, and very tender to touch, right gluteal region normal and non-tender, no involvement in gluteal fold/anus - Extremities Exam Extremities exam: Positive for: normal inspection. Negative for: calf tenderness, pedal edema, tenderness - Neurological Exam Neurological exam: Alert, Oriented x3 - Skin Skin Exam: Dry, Warm Results - Vital Signs Recent Vital Signs: Last Vital Signs Temp 101.2 F H 12/09/17 19:34 Pulse 132 H 12/09/17 19:34 Resp 18 12/09/17 19:34 BP 116/72 12/09/17 19:34 Pulse Ox 99 12/09/17 21:21 - Labs Result Diagrams: 12/09/17 20:54 12/09/17 20:54 Labs: Laboratory Results - last 24 hr 12/09/17 12/09/17 12/09/17 20:49 20:54 20:54 WBC 19.2 H D RBC 4.45 Hgb 14.2 Hct 41.6 MCV 93.5 MCH 32.0 H MCHC 34.3 RDW 13.4 Plt Count 238 MPV 8.2 Neut % (Auto) 80.5 H Lymph % (Auto) 13.1 L [place] % (Auto) 6.0 Eos % (Auto) 0.2 Baso % (Auto) 0.2 Neut # (Auto) 15.5 H Lymph # (Auto) 2.5 [place] # (Auto) 1.2 H Eos # (Auto) 0.0 Baso # (Auto) 0.0 pO2 37 VBG pH 7.37 VBG pCO2 50 VBG HCO3 26.3 VBG Total CO2 30.4 H VBG Base Excess 2.7 H VBG Potassium 3.8 Sodium 140.0 139 Chloride 96.0 L 102 Glucose 95 Lactate 1.8 FiO2 21.0 Potassium 4.5 Carbon Dioxide 31 H Anion Gap 11 BUN 11 Creatinine 0.9 Est GFR ( Amer) > 60 Est GFR (Non-Af Amer) > 60 Random Glucose 98 Calcium 9.1 Venous Blood Potassium 3.8 Assessment & Plan (1) Abscess, gluteal, left Status: Acute (2) HIV (human immunodeficiency virus infection) Status: Chronic - Assessment and Plan (Free Text) Assessment: 32 y/o man w/ pmh of HIV (not AIDS) presents to the ED w/ left gluteal abscess. Plan: Left Gluteal Abscess - tender, erythema, edema, indurated, draining serosanguinous fluid - febrile in ED otherwise stable - CBC: 19.2>14.2/41.6<238 - BMP: 139/4.5, 102/31, 11/0.9, glucose 98 - VBG: pO2 37, pH 7.37, pCO2 50,HCO3 26.3, lactate 1.8 - tylenol 975 mg PO once - morphine 4 mg IV once - vancomycin 1 gm IV once - IVF NS 500 mL/hr - CT abdomen/pelvis: pending - f/u CBC, CMP, Mg, phos, coags - f/u blood and wound culture - surgery consult ordered - tylenol 650 mg PO Q6h prn for fever - IVF LR 105mL/hr - morphine 2 mg IV Q4h prn for severe pain - vancomycin 1 gm IV Q12h - zosyn 3.375 gm IV Q6h - monitor for acute changes - admit to [facility] HIV - viral load <20 (10/03/2017) - CD4 674 (10/03/2017) - controlled w/ genvoya (notified patient that not available in the hospital, counseled to have medication brought to hospital) Prophylactic measures - DVT: lovenox 40 mg SC daily
[2017-12-09] MEDS ORDERED: Iohexol 300 100 ML IJ ONE (23:33)
[2017-12-09] MEDS ORDERED: Sodium Chloride 0.9% 50 ML IV ONE (23:33)
--- NOTE | 2017-12-10 01:40 | PCM.SURG1 ---
Surgeon's Initial Post Op Note - Surgeon's Notes Surgeon: Dr. Collins [employer] Teacher'S Aide: [place] PGY2 Type of Anesthesia: IV Sedation (morphine & ativan), Local Pre-Operative Diagnosis: Left gluteal abscess Operative Findings: Left gluteal abscess Post-Operative Diagnosis: Left gluteal abscess Operation Performed: Bedside Incision and drainage with irrgation and packing of Left gluteal abscess Specimen/Specimens Removed: Wound culture Estimated Blood Loss: EBL {In ML}: 8 Blood Products Given: N/A Drains Used: No Drains Post-Op Condition: Good Date of Surgery/Procedure: 12/10/17 Time of Surgery/Procedure: 02:27
[2017-12-10] MEDS ORDERED: Lidocaine 1% Inj (20ml) IJ ONE (01:48)
[2017-12-10] MEDS ORDERED: LIDOCAINE 2% 10ML 20 MG/ML VIAL IJ STA (01:58)
[2017-12-10] MEDS ORDERED: Lidocaine 2% Inj (20ml) IJ STA (02:01)
[2017-12-10] MEDS ORDERED: Lidocaine 2% PF (10 ml) Amp INJ STA (02:06)
[2017-12-10] MEDS ORDERED: Piperacillin/Tazobact 3.375 GM in Sodium Chloride 0.9% 100 ML IVPB SCH (04:00)
[2017-12-10] MEDS: Piperacillin/Tazobact 3.375 GM in Sodium Chloride 0.9% 100 ML IVPB SCH ×4 (04:32→22:42)
[2017-12-10 06:26] LABS: BASO % 0.2 % (0.0-2.0); EOS % 0.3 % (0.0-4.0); HEMOGLOBIN 12.3 g/dL (12.0-18.0); INR 1.3; LYMPH % 12.7 % (20.0-40.0); MEAN CELL VOLUME 93.8 fl (80.0-94.0); MEAN CORPUSCULAR HEMOGLOBIN 32.1 pg (27.0-31.0); MEAN CORPUSCULAR HGB CONC 34.3 g/dL (33.0-37.0); MEAN PLATELET VOLUME 8.1 fl (7.2-11.7); MONO # 1.3 K/uL (0.0-0.8); MONO % 8.3 % (0.0-10.0); NEUT # 12.5 K/uL (1.8-7.0); NEUT % 78.5 % (50.0-75.0); NRBC % 0.1 % (0.0-0.0); PROTHROMBIN TIME 14.9 Seconds (9.8-13.1); RBC 3.83 Mil/uL (4.40-5.90); RED CELL DISTRIBUTION WIDTH 13.4 % (11.5-14.5); WHITE BLOOD COUNT 15.9 K/uL (4.8-10.8)
[2017-12-10 06:53] LABS: ALBUMIN 3.4 g/dL (3.5-5.0); ALT/SGPT 116 U/L (21-72); AST/SGOT 276 U/L (17-59); BLOOD UREA NITROGEN 8 mg/dl (9-20); CALCIUM 8.8 mg/dL (8.4-10.2); GFR NON-AFRICAN AMERICAN > 60
[2017-12-10] MEDS: Cholecalciferol 1,000 INTLU TAB PO SCH (08:51)
[2017-12-10] MEDS ORDERED: Patient's Own Med (Elviteg/Cob/Emtri/Tenof Alafen [Genvoya Tablet] 1 TAB) PO SCH (09:00)
[2017-12-10] MEDS ORDERED: Enoxaparin 40 mg Syringe SC SCH (09:00)
--- NOTE | 2017-12-10 10:04 | CP.PCM.PN ---
Addendum entered and electronically signed by Lito Trinh MD 12/10/17 15:30: Patient seen and examined bedside .All chart and clinical data reviewed . Care resumed . Case discussed with resident . Agree with assessment and plan s/p I&D of buttock abscess Follow up cultures Continue IV Vanco and Zosyn Original Note: Subjective - Date & Time of Evaluation Date of Evaluation: 12/10/17 Time of Evaluation: 09:00 - Subjective Subjective: Patient seen at bedside in not acute distress. Afebrile overnight. States pain has improved. Ate breakfast and tolerated this AM. S/P I&D of gluteal abscess around midnight by Surgery team. No changes in urination or stools. States he is compliant with his home meds. Objective - Vital Signs/Intake and Output Vital Signs (last 24 hours): Temp Pulse Resp BP Pulse Ox 98.6 F 83 19 105/63 98 12/10/17 07:44 12/10/17 07:44 12/10/17 07:44 12/10/17 07:44 12/10/17 07:44 - Medications Medications: Current Medications Acetaminophen (Tylenol 325mg Tab) 650 mg PO Q6 PRN PRN Reason: Fever >100.4 F Cholecalciferol (Vitamin D) 2,000 intlu PO DAILY [facility] Last Admin: 12/10/17 08:51 Dose: 2,000 intlu Home Med (Elviteg/Cob/Emtri/Tenof Alafen [Genvoya Tablet]) 1 tab PO DAILY [facility] Lactated Ringer's (Lactated Ringer's) 1,000 mls @ 105 mls/hr IV .Q9H32M [facility] Last Admin: 12/09/17 23:06 Dose: 105 mls/hr Vancomycin HCl 1 gm/ Sodium (Chloride) 250 mls @ 166.667 mls/hr IVPB Q12 [facility]; Protocol Last Admin: 12/10/17 08:50 Dose: 166.667 mls/hr Piperacillin Sod/Tazobactam (Sod 3.375 gm/ Sodium Chloride) 100 mls @ 100 mls/hr IVPB Q6 [facility]; Protocol Last Admin: 12/10/17 09:02 Dose: 100 mls/hr Morphine Sulfate (Morphine) 2 mg IVP Q4 PRN PRN Reason: Pain, severe (8-10) Last Admin: 12/10/17 01:42 Dose: 2 mg - Labs Labs: 12/10/17 05:30 12/10/17 05:30 PT 14.9 Seconds (9.8-13.1) H 12/10/17 05:30 INR 1.3 12/10/17 05:30 APTT 31.9 Seconds (25.6-37.1) 12/09/17 23:10 - Constitutional Appears: Non-toxic - Eye Exam Eye Exam: EOMI, PERRL - ENT Exam ENT Exam: Mucous Membranes Moist - Respiratory Exam Respiratory Exam: Clear to Ausculation Bilateral, NORMAL BREATHING PATTERN - Cardiovascular Exam Cardiovascular Exam: REGULAR RHYTHM, +S1, +S2. absent: Gallop - GI/Abdominal Exam GI & Abdominal Exam: Soft, Normal Bowel Sounds - Extremities Exam Extremities Exam: Normal Capillary Refill. absent: Calf Tenderness, Tenderness - Neurological Exam Neurological Exam: Alert, Awake, Oriented x3 - Psychiatric Exam Psychiatric exam: Normal Affect, Normal Mood - Skin Skin Exam: Warm. absent: Intact (Left glute: ~10 cm diameter of erythema, edema, dressing and packing in place) Assessment and Plan - Assessment and Plan (Free Text) Assessment: 32 y/o man w/ pmh of HIV admitted for w/ left gluteal abscess. Left Gluteal Abscess s/p I&D by Surgery team with packing Leukocytosis improved Afebrile since admission C/w vancomycin 1 gm IV Q12h C/w zosyn 3.375 gm IV Q6h Regular diet Pain control BCx and WCx results pending Leukocytosis Acute Due to gluteal abscess Improved 19,2---> 15.9 this AM F/U CBC tomorrow HIV without AIDS viral load <20 (10/03/2017) CD4 674 (10/03/2017) controlled w/ genvoya Elevated LFTs Chronic Possible due to HIV med SE Hep B and Hep C neg in 08/2017 Prophylactic measures - DVT: lovenox 40 mg SC daily
--- NOTE | 2017-12-10 10:17 | CT ---
Date of service: 12/09/2017 PROCEDURE: CT Abdomen and Pelvis with contrast HISTORY: Left gluteal abscess COMPARISON: CT scan of the abdomen and pelvis dated 12/26/2012 TECHNIQUE: Contrast dose: 95 mL Omnipaque 300 Radiation dose: Total exam DLP = 349.9 mGy-cm. This CT exam was performed using one or more of the following dose reduction techniques: Automated exposure control, adjustment of the mA and/or kV according to patient size, and/or use of iterative reconstruction technique. FINDINGS: LOWER THORAX: Unremarkable. LIVER: Unremarkable. No gross lesion or ductal dilatation. GALLBLADDER AND BILE DUCTS: Prior cholecystectomy with surgical clips in place. PANCREAS: Unremarkable. No gross lesion or ductal dilatation. SPLEEN: Unremarkable. ADRENALS: Unremarkable. No mass. KIDNEYS AND URETERS: Unremarkable. No hydronephrosis. No solid mass. VASCULATURE: Unremarkable. No aortic aneurysm. BOWEL: Unremarkable. No obstruction. No gross mural thickening. APPENDIX: Normal appendix. PERITONEUM: Unremarkable. No free fluid. No free air. LYMPH NODES: Unremarkable. No enlarged lymph nodes. BLADDER: Unremarkable. REPRODUCTIVE: Stable appearance of prominent encapsulated low-density centrally within the prostate or seminal vesicles, likely seminal vesicle cyst or prostatic stromal hyperplasia. BONES: No acute fracture. OTHER FINDINGS: Extensive stranding within the left gluteal soft tissues without fluid collection. IMPRESSION: Extensive stranding within the left gluteal soft tissues without discrete fluid collection, compatible with phlegmonous changes and overlying cellulitis. Interval cholecystectomy. Additional stable findings as above.
[2017-12-10] MEDS: Lactated Ringer's 1,000 ML IV SCH (16:56)
[2017-12-11] MEDS: Lactated Ringer's 1,000 ML IV SCH (04:00)
[2017-12-11] MEDS: Piperacillin/Tazobact 3.375 GM in Sodium Chloride 0.9% 100 ML IVPB SCH ×4 (04:23→21:56)
[2017-12-11 07:33] LABS: HEMOGLOBIN 13.1 g/dL (12.0-18.0); MEAN CELL VOLUME 94.5 fl (80.0-94.0); MEAN CORPUSCULAR HEMOGLOBIN 32.3 pg (27.0-31.0); MEAN CORPUSCULAR HGB CONC 34.1 g/dL (33.0-37.0); RBC 4.06 Mil/uL (4.40-5.90); RED CELL DISTRIBUTION WIDTH 13.6 % (11.5-14.5); WHITE BLOOD COUNT 10.4 K/uL (4.8-10.8)
[2017-12-11 07:34] LABS: BLOOD UREA NITROGEN 9 mg/dl (9-20); CALCIUM 8.9 mg/dL (8.4-10.2); GFR NON-AFRICAN AMERICAN > 60
[2017-12-11] MEDS: Cholecalciferol 1,000 INTLU TAB PO SCH (07:59)
--- NOTE | 2017-12-11 09:48 | CP.PCM.PN ---
Subjective - Date & Time of Evaluation Date of Evaluation: 12/11/17 Time of Evaluation: 07:00 - Subjective Subjective: GENERAL SURGERY PROGRESS NOTE FOR DR. DURBIN Patient seen and examined at bedside. Patient states pain has improved. No BM. Dressing was removed, purulent material able to be expressed, and wet to dry dressing replaced. Objective - Vital Signs/Intake and Output Vital Signs (last 24 hours): Temp Pulse Resp BP Pulse Ox 98.0 F 66 19 99/68 L 100 12/11/17 08:24 12/11/17 08:24 12/11/17 08:24 12/11/17 08:24 12/11/17 08:24 - Medications Medications: Current Medications Acetaminophen (Tylenol 325mg Tab) 650 mg PO Q6 PRN PRN Reason: Fever >100.4 F Cholecalciferol (Vitamin D) 2,000 intlu PO DAILY [facility] Last Admin: 12/11/17 07:59 Dose: 2,000 intlu Docusate Sodium (Colace) 100 mg PO BID [facility] Last Admin: 12/11/17 07:59 Dose: 100 mg Home Med (Elviteg/Cob/Emtri/Tenof Alafen [Genvoya Tablet]) 1 tab PO DAILY [facility] Lactated Ringer's (Lactated Ringer's) 1,000 mls @ 105 mls/hr IV .Q9H32M [facility] Last Admin: 12/11/17 04:00 Dose: 105 mls/hr Vancomycin HCl 1 gm/ Sodium (Chloride) 250 mls @ 166.667 mls/hr IVPB Q12 [facility]; Protocol Last Admin: 12/11/17 08:00 Dose: 166.667 mls/hr Piperacillin Sod/Tazobactam (Sod 3.375 gm/ Sodium Chloride) 100 mls @ 100 mls/hr IVPB Q6 [facility]; Protocol Last Admin: 12/11/17 09:00 Dose: 100 mls/hr Morphine Sulfate (Morphine) 2 mg IVP Q4 PRN PRN Reason: Pain, severe (8-10) Last Admin: 12/11/17 07:58 Dose: 2 mg Sennosides (Senokot Tab) 17.2 mg PO HS [facility] Last Admin: 12/10/17 22:39 Dose: 17.2 mg - Labs Labs: 12/11/17 05:30 12/11/17 05:30 PT 14.9 Seconds (9.8-13.1) H 12/10/17 05:30 INR 1.3 12/10/17 05:30 APTT 31.9 Seconds (25.6-37.1) 12/09/17 23:10 - Constitutional Appears: Well, Non-toxic, No Acute Distress - Head Exam Head Exam: ATRAUMATIC, NORMAL INSPECTION - Eye Exam Eye Exam: EOMI, Normal appearance - Respiratory Exam Respiratory Exam: NORMAL BREATHING PATTERN. absent: Respiratory Distress - Cardiovascular Exam Cardiovascular Exam: +S1, +S2 - GI/Abdominal Exam GI & Abdominal Exam: Soft. absent: Distended, Firm, Guarding, Tenderness - Rectal Exam Additional comments: Purulent drainage able to be expressed from L buttock incision - Neurological Exam Neurological Exam: Alert, Awake, Oriented x3 - Psychiatric Exam Psychiatric exam: Normal Affect, Normal Mood - Skin Skin Exam: Dry, Normal Color, Warm Assessment and Plan - Assessment and Plan (Free Text) Assessment: 32yo M with HIV with left gluteal abscess s/p bedside I&D POD#1 - Leukocytosis resolved this AM - Wet to dry dressing changed - Continue Antibiotics - Continue warm compresses and dressing changes - Discussed plan with Dr. Dennis Alfaro PGY-4
--- NOTE | 2017-12-11 10:38 | CP.PCM.PN ---
<Alf Felix - Last Filed: 12/11/17 10:44> Subjective - Date & Time of Evaluation Date of Evaluation: 12/11/17 Time of Evaluation: 08:50 - Subjective Subjective: Seen at bedside this morning in not acute distress. Pain is better. Wound dressing and packing changed by Sx team this AM. Patient tolerated well procdure. Afebrile for more than 24h. Tolerating PO diet. Objective - Vital Signs/Intake and Output Vital Signs (last 24 hours): Temp Pulse Resp BP Pulse Ox 98.0 F 66 19 99/68 L 100 12/11/17 08:24 12/11/17 08:24 12/11/17 08:24 12/11/17 08:24 12/11/17 08:24 - Medications Medications: Current Medications Acetaminophen (Tylenol 325mg Tab) 650 mg PO Q6 PRN PRN Reason: Fever >100.4 F Cholecalciferol (Vitamin D) 2,000 intlu PO DAILY [facility] Last Admin: 12/11/17 07:59 Dose: 2,000 intlu Docusate Sodium (Colace) 100 mg PO BID [facility] Last Admin: 12/11/17 07:59 Dose: 100 mg Home Med (Elviteg/Cob/Emtri/Tenof Alafen [Genvoya Tablet]) 1 tab PO DAILY [facility] Lactated Ringer's (Lactated Ringer's) 1,000 mls @ 105 mls/hr IV .Q9H32M [facility] Last Admin: 12/11/17 04:00 Dose: 105 mls/hr Vancomycin HCl 1 gm/ Sodium (Chloride) 250 mls @ 166.667 mls/hr IVPB Q12 [facility]; Protocol Last Admin: 12/11/17 08:00 Dose: 166.667 mls/hr Piperacillin Sod/Tazobactam (Sod 3.375 gm/ Sodium Chloride) 100 mls @ 100 mls/hr IVPB Q6 [facility]; Protocol Last Admin: 12/11/17 09:00 Dose: 100 mls/hr Morphine Sulfate (Morphine) 2 mg IVP Q4 PRN PRN Reason: Pain, severe (8-10) Last Admin: 12/11/17 07:58 Dose: 2 mg Sennosides (Senokot Tab) 17.2 mg PO HS [facility] Last Admin: 12/10/17 22:39 Dose: 17.2 mg - Labs Labs: 12/11/17 05:30 12/11/17 05:30 PT 14.9 Seconds (9.8-13.1) H 12/10/17 05:30 INR 1.3 12/10/17 05:30 APTT 31.9 Seconds (25.6-37.1) 12/09/17 23:10 - Constitutional Appears: Non-toxic, No Acute Distress - Eye Exam Eye Exam: EOMI, PERRL - ENT Exam ENT Exam: Mucous Membranes Moist - Respiratory Exam Respiratory Exam: Clear to Ausculation Bilateral, NORMAL BREATHING PATTERN. absent: Rales, Wheezes, Respiratory Distress - Cardiovascular Exam Cardiovascular Exam: REGULAR RHYTHM, +S1, +S2. absent: Gallop - GI/Abdominal Exam GI & Abdominal Exam: Soft, Normal Bowel Sounds. absent: Tenderness - Extremities Exam Extremities Exam: Normal Capillary Refill. absent: Calf Tenderness, Joint Swel ling, Pedal Edema - Neurological Exam Neurological Exam: Alert, Awake, Oriented x3 - Psychiatric Exam Psychiatric exam: Normal Affect, Normal Mood - Skin Additional comments: Left gluteal inner area still indurated, tender(improved) and red. Packing in place. Dressing intact Assessment and Plan - Assessment and Plan (Free Text) Assessment: 32 y/o man w/ pmh of HIV admitted for w/ left gluteal abscess. Left Gluteal Abscess s/p I&D by Surgery team with packing Dressing changed this AM, still pus present Leukocytosis resolved Afebrile more than 24h C/w vancomycin 1 gm IV Q12h C/w zosyn 3.375 gm IV Q6h Surgery on board Regular diet Pain control BCx no grow so far WCx growing gram + cocci in clusters Leukocytosis Resolved HIV without AIDS viral load <20 (10/03/2017) CD4 674 (10/03/2017) controlled w/ genvoya Elevated LFTs Chronic Possible due to HIV med SE Hep B and Hep C neg in 08/2017 Prophylactic measures DVT: lovenox 40 mg SC daily <Luz Wolfe - Last Filed: 12/11/17 16:40> Objective - Vital Signs/Intake and Output Vital Signs (last 24 hours): Temp Pulse Resp BP Pulse Ox 98 F 91 H 18 118/82 98 12/11/17 16:06 12/11/17 16:06 12/11/17 16:06 12/11/17 16:06 12/11/17 16:06 - Medications Medications: Current Medications Acetaminophen (Tylenol 325mg Tab) 650 mg PO Q6 PRN PRN Reason: Fever >100.4 F Cholecalciferol (Vitamin D) 2,000 intlu PO DAILY [facility] Last Admin: 12/11/17 07:59 Dose: 2,000 intlu Docusate Sodium (Colace) 100 mg PO BID [facility] Last Admin: 12/11/17 16:06 Dose: Not Given Home Med (Elviteg/Cob/Emtri/Tenof Alafen [Genvoya Tablet]) 1 tab PO [facility] Last Admin: 12/11/17 16:01 Dose: Not Given Lactated Ringer's (Lactated Ringer's) 1,000 mls @ 105 mls/hr IV .Q9H32M [facility] Last Admin: 12/11/17 04:00 Dose: 105 mls/hr Vancomycin HCl 1 gm/ Sodium (Chloride) 250 mls @ 166.667 mls/hr IVPB Q12 [facility]; Protocol Last Admin: 12/11/17 08:00 Dose: 166.667 mls/hr Piperacillin Sod/Tazobactam (Sod 3.375 gm/ Sodium Chloride) 100 mls @ 100 mls/hr IVPB Q6 [facility]; Protocol Last Admin: 12/11/17 16:05 Dose: 100 mls/hr Morphine Sulfate (Morphine) 2 mg IVP Q4 PRN PRN Reason: Pain, severe (8-10) Last Admin: 12/11/17 07:58 Dose: 2 mg Sennosides (Senokot Tab) 17.2 mg PO [facility] Last Admin: 12/10/17 22:39 Dose: 17.2 mg - Labs Labs: 12/11/17 05:30 12/11/17 05:30 PT 14.9 Seconds (9.8-13.1) H 12/10/17 05:30 INR 1.3 12/10/17 05:30 APTT 31.9 Seconds (25.6-37.1) 12/09/17 23:10 Attending/Attestation - Attestation I have personally seen and examined this patient.: Yes I have fully participated in the care of the patient.: Yes I have reviewed all pertinent clinical information, including history, physical exam and plan: Yes
[2017-12-11] MEDS: Patient's Own Med (Elviteg/Cob/Emtri/Tenof Alafen [Genvoya Tablet] 1 TAB) PO SCH ×2 (16:01→21:56)
[2017-12-11 16:06] VITALS: O2SAT 98
[2017-12-12 00:21] VITALS: RESP 19
[2017-12-12] MEDS: Piperacillin/Tazobact 3.375 GM in Sodium Chloride 0.9% 100 ML IVPB SCH ×2 (04:02→10:06)
[2017-12-12 06:18] LABS: HEMOGLOBIN 12.9 g/dL (12.0-18.0); MEAN CELL VOLUME 94.9 fl (80.0-94.0); MEAN CORPUSCULAR HEMOGLOBIN 32.3 pg (27.0-31.0); RBC 3.99 Mil/uL (4.40-5.90); RED CELL DISTRIBUTION WIDTH 13.6 % (11.5-14.5); WHITE BLOOD COUNT 7.5 K/uL (4.8-10.8)
[2017-12-12 06:50] LABS: ALBUMIN 3.7 g/dL (3.5-5.0); ALT/SGPT 80 U/L (21-72); AST/SGOT 55 U/L (17-59); BLOOD UREA NITROGEN 9 mg/dl (9-20); CALCIUM 9.1 mg/dL (8.4-10.2); GFR NON-AFRICAN AMERICAN > 60
[2017-12-12 08:16] VITALS: BP 93/51; PULSE 79; TEMP 97.9
[2017-12-12] MEDS: Cholecalciferol 1,000 INTLU TAB PO SCH (08:34)
--- NOTE | 2017-12-12 09:54 | CP.PCM.PN ---
Subjective - Date & Time of Evaluation Date of Evaluation: 12/12/17 Time of Evaluation: 07:00 - Subjective Subjective: GENERAL SURGERY PROGRESS NOTE FOR DR. DURBIN Patient seen and examined at bedside. Patient states pain has improved. Dressing to be changed this morning. Patient had BM yesterday. Objective - Vital Signs/Intake and Output Vital Signs (last 24 hours): Temp Pulse Resp BP Pulse Ox 97.9 F 79 19 93/51 L 98 12/12/17 08:16 12/12/17 08:16 12/12/17 08:16 12/12/17 08:16 12/12/17 08:16 - Medications Medications: Current Medications Acetaminophen (Tylenol 325mg Tab) 650 mg PO Q6 PRN PRN Reason: Fever >100.4 F Cholecalciferol (Vitamin D) 2,000 intlu PO DAILY [facility] Last Admin: 12/12/17 08:34 Dose: 2,000 intlu Docusate Sodium (Colace) 100 mg PO BID [facility] Last Admin: 12/12/17 08:33 Dose: 100 mg Home Med (Elviteg/Cob/Emtri/Tenof Alafen [Genvoya Tablet]) 1 tab PO HS [facility] Last Admin: 12/11/17 21:56 Dose: 1 tab Lactated Ringer's (Lactated Ringer's) 1,000 mls @ 105 mls/hr IV .Q9H32M [facility] Last Admin: 12/11/17 04:00 Dose: 105 mls/hr Vancomycin HCl 1 gm/ Sodium (Chloride) 250 mls @ 166.667 mls/hr IVPB Q12 [facility]; Protocol Last Admin: 12/12/17 08:33 Dose: 166.667 mls/hr Piperacillin Sod/Tazobactam (Sod 3.375 gm/ Sodium Chloride) 100 mls @ 100 mls/hr IVPB Q6 [facility]; Protocol Last Admin: 12/12/17 04:02 Dose: 100 mls/hr Morphine Sulfate (Morphine) 2 mg IVP Q4 PRN PRN Reason: Pain, severe (8-10) Last Admin: 12/11/17 07:58 Dose: 2 mg Sennosides (Senokot Tab) 17.2 mg PO HS [facility] Last Admin: 12/11/17 21:56 Dose: 17.2 mg - Labs Labs: 12/12/17 06:00 12/12/17 06:00 PT 14.9 Seconds (9.8-13.1) H 12/10/17 05:30 INR 1.3 12/10/17 05:30 APTT 31.9 Seconds (25.6-37.1) 12/09/17 23:10 - Constitutional Appears: Non-toxic, No Acute Distress - Head Exam Head Exam: ATRAUMATIC, NORMAL INSPECTION - Eye Exam Eye Exam: EOMI, Normal appearance - Respiratory Exam Respiratory Exam: NORMAL BREATHING PATTERN. absent: Respiratory Distress - Cardiovascular Exam Cardiovascular Exam: +S1, +S2 - GI/Abdominal Exam GI & Abdominal Exam: Soft. absent: Distended, Firm, Guarding, Rigid, Tenderness, Rebound - Rectal Exam Additional comments: Wet to dry dressing in place over gluteal area - Neurological Exam Neurological Exam: Alert, Awake, CN II-XII Intact, Oriented x3 - Psychiatric Exam Psychiatric exam: Normal Affect, Normal Mood - Skin Skin Exam: Dry, Normal Color, Warm Assessment and Plan - Assessment and Plan (Free Text) Assessment: 32yo M with HIV with left gluteal abscess s/p bedside I&D POD#2 - Leukocytosis resolved - Wet to dry dressing TID - Continue Antibiotics, cx grew MRSA - Continue warm compresses and dressing changes - Discussed with patient that if able to do dressing changes with help from ajit an at home, he may be discharged home - Clear for discharge from surgical standpoint with PO antibiotics and continuing dressing changes with wet to dry TID - Discussed plan with Dr. Dennis Alfaro PGY-4
--- NOTE | 2017-12-12 12:49 | CP.PCM.DIS ---
<Kina Collins - Last Filed: 12/12/17 12:53> Provider - Provider Date of Admission: 12/11/17 10:38 Attending physician: Nicky Minaya DO Primary care physician: Dr. Zuniga Consults: Surgery, Dr. Collins Time Spent in preparation of Discharge (in minutes): 40 Diagnosis - Discharge Diagnosis (1) Abscess, gluteal, left Status: Acute (2) Status post incision and drainage Status: Acute (3) HIV (human immunodeficiency virus infection) Status: Chronic Hospital Course - Lab Results Lab Results: Micro Results 12/09/17 07:50 Abscess - Buttock-Left Gram Stain - Final 12/09/17 07:50 Abscess - Buttock-Left Wound Culture - Final Methicillin Resistant S Aureus 12/10/17 04:45 Abscess - Buttock-Left Gram Stain - Final 12/10/17 04:45 Abscess - Buttock-Left Wound Culture - Final Methicillin Resistant S Aureus 12/09/17 20:35 Blood-Venous Blood Culture - Preliminary NO GROWTH AFTER 48 HOURS 12/09/17 20:49 Blood-Venous Blood Culture - Preliminary NO GROWTH AFTER 48 HOURS Most Recent Lab Values WBC 7.5 K/uL (4.8-10.8) 12/12/17 06:00 RBC 3.99 Mil/uL (4.40-5.90) L 12/12/17 06:00 Hgb 12.9 g/dL (12.0-18.0) 12/12/17 06:00 Hct 37.8 % (35.0-51.0) 12/12/17 06:00 MCV 94.9 fl (80.0-94.0) H 12/12/17 06:00 MCH 32.3 pg (27.0-31.0) H 12/12/17 06:00 MCHC 34.0 g/dL (33.0-37.0) 12/12/17 06:00 RDW 13.6 % (11.5-14.5) 12/12/17 06:00 Plt Count 286 K/uL (130-400) 12/12/17 06:00 MPV 8.1 fl (7.2-11.7) 12/10/17 05:30 Neut % (Auto) 78.5 % (50.0-75.0) H 12/10/17 05:30 Lymph % (Auto) 12.7 % (20.0-40.0) L 12/10/17 05:30 [place] % (Auto) 8.3 % (0.0-10.0) 12/10/17 05:30 Eos % (Auto) 0.3 % (0.0-4.0) 12/10/17 05:30 Baso % (Auto) 0.2 % (0.0-2.0) 12/10/17 05:30 Neut # (Auto) 12.5 K/uL (1.8-7.0) H 12/10/17 05:30 Lymph # (Auto) 2.0 K/uL (1.0-4.3) 12/10/17 05:30 [place] # (Auto) 1.3 K/uL (0.0-0.8) H 12/10/17 05:30 Eos # (Auto) 0.0 K/uL (0.0-0.7) 12/10/17 05:30 Baso # (Auto) 0.0 K/uL (0.0-0.2) 12/10/17 05:30 PT 14.9 Seconds (9.8-13.1) H 12/10/17 05:30 INR 1.3 12/10/17 05:30 APTT 31.9 Seconds (25.6-37.1) 12/09/17 23:10 pO2 37 mm/Hg (30-55) 12/09/17 20:49 VBG pH 7.37 (7.32-7.43) 12/09/17 20:49 VBG pCO2 50 mmHg (40-60) 12/09/17 20:49 VBG HCO3 26.3 mmol/L 12/09/17 20:49 VBG Total CO2 30.4 mmol/L (22-28) H 12/09/17 20:49 VBG Base Excess 2.7 mmol/L (0.0-2.0) H 12/09/17 20:49 VBG Potassium 3.8 mmol/L (3.6-5.2) 12/09/17 20:49 Sodium 140.0 mmol/L (132-148) 12/09/17 20:49 Chloride 96.0 mmol/L (98-107) L 12/09/17 20:49 Glucose 95 mg/dL (75-110) 12/09/17 20:49 Lactate 1.8 mmol/L (0.7-2.1) 12/09/17 20:49 FiO2 21.0 % 12/09/17 20:49 Sodium 143 mmol/l (132-148) 12/12/17 06:00 Potassium 3.8 MMOL/L (3.6-5.0) 12/12/17 06:00 Chloride 107 mmol/L (98-107) 12/12/17 06:00 Carbon Dioxide 26 mmol/L (22-30) 12/12/17 06:00 Anion Gap 14 (10-20) 12/12/17 06:00 BUN 9 mg/dl (9-20) 12/12/17 06:00 Creatinine 1.0 mg/dl (0.8-1.5) 12/12/17 06:00 Est GFR ( Amer) > 60 12/12/17 06:00 Est GFR (Non-Af Amer) > 60 12/12/17 06:00 Random Glucose 97 mg/dL (75-110) 12/12/17 06:00 Calcium 9.1 mg/dL (8.4-10.2) 12/12/17 06:00 Phosphorus 3.6 mg/dl (2.5-4.5) 12/10/17 05:30 Magnesium 2.2 MG/DL (1.6-2.3) 12/10/17 05:30 Total Bilirubin 0.3 mg/dl (0.2-1.3) 12/12/17 06:00 AST 55 U/L (17-59) 12/12/17 06:00 ALT 80 U/L (21-72) H D 12/12/17 06:00 Alkaline Phosphatase 87 U/L (38-126) 12/12/17 06:00 Total Protein 7.3 G/DL (6.3-8.2) 12/12/17 06:00 Albumin 3.7 g/dL (3.5-5.0) 12/12/17 06:00 Globulin 3.6 gm/dL (2.2-3.9) 12/12/17 06:00 Albumin/Globulin Ratio 1.0 (1.0-2.1) 12/12/17 06:00 Venous Blood Potassium 3.8 mmol/L (3.6-5.2) 12/09/17 20:49 - Hospital Course Hospital Course: 32 y/o male with PMH of HIV (viral load <20 (10/03/2017),CD4 674 (10/03/2017)) admitted to [facility] for evaluation and treatment of left gluteal abscess. Patient was started on IV vanco and zosyn, Surgery consulted who performed left gluteal abscess I&D. Wound Cx: MARSA, resolved leukocytosis, afebrile. Patient is stable and cleared by surgery for discharge. Patient agrees with the discharge plan, instructed on home Wound dressing (Wet to dry) and packing changes. Patient discharged home with Clinda 300mg PO Q6H, 40 caps, Tylenol 650mg PRN Q6H and Senokot 17.2 mg PO HS, 30 tabs. Patient was instructed to Continue wet to dry dressings at home TID and follow up with Dr. Collins, surgery, in 1 week Discharge medications: Clinda 300mg PO Q6H, 40 caps, Senokot 17.2 mg PO HS, 30 tabs, and Tylenol 650mg tab PO Q6H PRN. Discharge instructions: Continue wet to dry dressings at home TID and follow up with Dr. Collins, surgery, and PMD in 1 week Discharge Exam - Head Exam Head Exam: ATRAUMATIC, NORMAL INSPECTION - Eye Exam Eye Exam: EOMI, Normal appearance, PERRL Pupil Exam: NORMAL ACCOMODATION - ENT Exam ENT Exam: Mucous Membranes Moist - Neck Exam Neck exam: Normal Inspection - Respiratory Exam Respiratory Exam: Clear to PA & Lateral, NORMAL BREATHING PATTERN - Cardiovascular Exam Cardiovascular Exam: REGULAR RHYTHM, +S1, +S2 - GI/Abdominal Exam GI & Abdominal Exam: Normal Bowel Sounds, Soft. absent: Tenderness - Back Exam Back exam: absent: CVA tenderness (L), CVA tenderness (R) - Neurological Exam Neurological exam: Alert, CN II-XII Intact, Normal Gait, Oriented x3, Reflexes Normal - Psychiatric Exam Psychiatric exam: Normal Affect - Skin Skin Exam: Dry, Intact, Normal Color - Additional Findings Additional findings: Left gluteal inner area, I&D site; mild tenderness and indurated with erythema, packing in place, Outer dressing c/d/i. Discharge Plan - Discharge Medications Prescriptions: Clindamycin [Cleocin] 300 mg PO Q6 #40 cap Sennosides A and B [Senokot Tab] 17.2 mg PO HS #30 tab - Follow Up Plan Condition: FAIR Disposition: HOME/ ROUTINE Patient education suggested?: Yes Instructions: How to Change a Wet to Dry Dressing, Abscess Incision and Drainage (DC) Additional Instructions: Continue wet to dry dressings at home TID Place wet (with water or saline) kerlex inside wound, cut end, place 4x4 on top and cover with Abd and tape May change dressing PRN if soiled from BM Follow up with Dr. Collins in his office in 1 week, call to make appointment appt [facility] in 1 wk Referrals: [facility] [Outside] Judit Collins MD [Staff Provider] - Francia Zuniga MD [Medical Doctor] - <Luz Wolfe - Last Filed: 12/12/17 17:59> Provider - Provider Date of Admission: 12/11/17 10:38 Attending physician: Nicky Minaya DO Hospital Course - Lab Results Lab Results: Micro Results 12/09/17 07:50 Abscess - Buttock-Left Gram Stain - Final 12/09/17 07:50 Abscess - Buttock-Left Wound Culture - Final Methicillin Resistant S Aureus 12/10/17 04:45 Abscess - Buttock-Left Gram Stain - Final 12/10/17 04:45 Abscess - Buttock-Left Wound Culture - Final Methicillin Resistant S Aureus 12/09/17 20:35 Blood-Venous Blood Culture - Preliminary NO GROWTH AFTER 48 HOURS 12/09/17 20:49 Blood-Venous Blood Culture - Preliminary NO GROWTH AFTER 48 HOURS Most Recent Lab Values WBC 7.5 K/uL (4.8-10.8) 12/12/17 06:00 RBC 3.99 Mil/uL (4.40-5.90) L 12/12/17 06:00 Hgb 12.9 g/dL (12.0-18.0) 12/12/17 06:00 Hct 37.8 % (35.0-51.0) 12/12/17 06:00 MCV 94.9 fl (80.0-94.0) H 12/12/17 06:00 MCH 32.3 pg (27.0-31.0) H 12/12/17 06:00 MCHC 34.0 g/dL (33.0-37.0) 12/12/17 06:00 RDW 13.6 % (11.5-14.5) 12/12/17 06:00 Plt Count 286 K/uL (130-400) 12/12/17 06:00 MPV 8.1 fl (7.2-11.7) 12/10/17 05:30 Neut % (Auto) 78.5 % (50.0-75.0) H 12/10/17 05:30 Lymph % (Auto) 12.7 % (20.0-40.0) L 12/10/17 05:30 [place] % (Auto) 8.3 % (0.0-10.0) 12/10/17 05:30 Eos % (Auto) 0.3 % (0.0-4.0) 12/10/17 05:30 Baso % (Auto) 0.2 % (0.0-2.0) 12/10/17 05:30 Neut # (Auto) 12.5 K/uL (1.8-7.0) H 12/10/17 05:30 Lymph # (Auto) 2.0 K/uL (1.0-4.3) 12/10/17 05:30 [place] # (Auto) 1.3 K/uL (0.0-0.8) H 12/10/17 05:30 Eos # (Auto) 0.0 K/uL (0.0-0.7) 12/10/17 05:30 Baso # (Auto) 0.0 K/uL (0.0-0.2) 12/10/17 05:30 PT 14.9 Seconds (9.8-13.1) H 12/10/17 05:30 INR 1.3 12/10/17 05:30 APTT 31.9 Seconds (25.6-37.1) 12/09/17 23:10 pO2 37 mm/Hg (30-55) 12/09/17 20:49 VBG pH 7.37 (7.32-7.43) 12/09/17 20:49 VBG pCO2 50 mmHg (40-60) 12/09/17 20:49 VBG HCO3 26.3 mmol/L 12/09/17 20:49 VBG Total CO2 30.4 mmol/L (22-28) H 12/09/17 20:49 VBG Base Excess 2.7 mmol/L (0.0-2.0) H 12/09/17 20:49 VBG Potassium 3.8 mmol/L (3.6-5.2) 12/09/17 20:49 Sodium 140.0 mmol/L (132-148) 12/09/17 20:49 Chloride 96.0 mmol/L (98-107) L 12/09/17 20:49 Glucose 95 mg/dL (75-110) 12/09/17 20:49 Lactate 1.8 mmol/L (0.7-2.1) 12/09/17 20:49 FiO2 21.0 % 12/09/17 20:49 Sodium 143 mmol/l (132-148) 12/12/17 06:00 Potassium 3.8 MMOL/L (3.6-5.0) 12/12/17 06:00 Chloride 107 mmol/L (98-107) 12/12/17 06:00 Carbon Dioxide 26 mmol/L (22-30) 12/12/17 06:00 Anion Gap 14 (10-20) 12/12/17 06:00 BUN 9 mg/dl (9-20) 12/12/17 06:00 Creatinine 1.0 mg/dl (0.8-1.5) 12/12/17 06:00 Est GFR ( Amer) > 60 12/12/17 06:00 Est GFR (Non-Af Amer) > 60 12/12/17 06:00 Random Glucose 97 mg/dL (75-110) 12/12/17 06:00 Calcium 9.1 mg/dL (8.4-10.2) 12/12/17 06:00 Phosphorus 3.6 mg/dl (2.5-4.5) 12/10/17 05:30 Magnesium 2.2 MG/DL (1.6-2.3) 12/10/17 05:30 Total Bilirubin 0.3 mg/dl (0.2-1.3) 12/12/17 06:00 AST 55 U/L (17-59) 12/12/17 06:00 ALT 80 U/L (21-72) H D 12/12/17 06:00 Alkaline Phosphatase 87 U/L (38-126) 12/12/17 06:00 Total Protein 7.3 G/DL (6.3-8.2) 12/12/17 06:00 Albumin 3.7 g/dL (3.5-5.0) 12/12/17 06:00 Globulin 3.6 gm/dL (2.2-3.9) 12/12/17 06:00 Albumin/Globulin Ratio 1.0 (1.0-2.1) 12/12/17 06:00 Venous Blood Potassium 3.8 mmol/L (3.6-5.2) 12/09/17 20:49 Attending/Attestation - Attestation I have personally seen and examined this patient.: Yes I have fully participated in the care of the patient.: Yes I have reviewed all pertinent clinical information, including history, physical exam and plan: Yes
--- NOTE | 2017-12-13 14:06 | PQF ---
PROVIDER RESPONSE TEXT: Bacteremia ruled out REVIEWER QUERY TEXT: Bacteremia Underlying Cause 2 (two) queries: 1. In agreement with the dx. of Bacteremia? as documented in the ER record. Please specify the unde rlying cause of bacteremia (suspected, probable, questionable, or clinical is acceptable if documente d at the time of discharge) 2. Please specify associated organism causing bacteremia if known OR: Bacteremia ruled out OR: Other diagnosis OR: Unable to determine WBC:19.2->15.9->10.4->7.5 ABG lactate:1.8 Temperature:101.2->98.2->98.3->98.3 (ER MD note; large abscess left gluteal region x 3 days now associated with fever. Patient took allev e yesterday) Pulse:132->90->77->79 Blood cult: prelim x 3 days: no growth Abscess Buttock-Left: MRSA ER :d/w Dr. Minaya for admission for bacteremia/celullitis Clinical Impression:Cellulitis, Abscess, gluteal, left H and P: note includes: pmh of HIV (not AIDS) presents to the ED w/ left gluteal abscess Plan: Left Gluteal Abscess - tender, erythema, edema, indurated, draining serosanguinous fluid - febr ile in ED otherwise stable - CBC: 19.2>14.2/41.6<238 - BMP: 139/4.5, 102/31, 11/0.9, glucose 98 - VBG : pO2 37, pH 7.37, pCO2 50,HCO3 26.3, lactate 1.8 vancomycin 1 gm IV once - IVF NS 500 mL/hr - CT abdomen/pelvis: pending - f/u CBC, CMP, Mg, phos, coa gs - f/u blood and wound culture - surgery consult ordered - tylenol 650 mg PO Q6h prn for fever - IVF LR 105mL/hr - morphine 2 mg IV Q4h prn for severe pain - vancomycin 1 gm IV Q12h - zosyn 3.375 gm IV Q6h HIV - viral load <20 (10/03/2017) - CD4 674 (10/03/2017) - controlled w/ genvoya (notified patient that not available in the hospital, counseled to have medic ation brought to hospital) 12/10 Surgery; CT with soft tissue inflammation left perineum and over gluteus. No perirectal abscess or collections. Cont. IV abx, ID consult. I+D to previously draining site, warm compress, pain contro l. 12/10: Post-Op note: 12/10: Pre-Op Dx: Left gluteal abscess Op Findings: Left gluteal abscess Post-Op Diagnosis: Left gluteal abscess Op Performed: Bedside Incision and drainage with irrgation and packing of Left gluteal abscess Specimen/Specimens Removed: Wound culture The patient's Clinical Indicators include: xx Query created by: Sherie Goldberg on 12/13/2017 10:57 AM Electronically signed by: Luz Wolfe MD 12/13/2017 2:03 PM
== END 2017-12-12 15:15 | disposition home or self-care (01) | DRG 714 ==
LOC: H.ER 18:54 → H.ERHOLD 22:39 → H.MEDSURG1 12-10 00:19 → OBSVTOIN 12-11 10:38
PROVIDERS: ADMIT Student in an Organized Health Care Education/Training Program; ATTEND Student in an Organized Health Care Education/Training Program
PROC: 0H98XZZ Drainage of Buttock Skin, External Approach (ICD-10-PCS; principal; 2017-12-10)
DX: L02.31 Cutaneous abscess of buttock (principal); Z21 Asymptomatic human immunodeficiency virus [HIV] infection status; F17.210 Nicotine dependence, cigarettes, uncomplicated; E55.9 Vitamin D deficiency, unspecified; R79.89 Other specified abnormal findings of blood chemistry; F12.90 Cannabis use, unspecified, uncomplicated; K59.00 Constipation, unspecified; B95.62 Methicillin resistant Staphylococcus aureus infection as the cause of diseases classified elsewhere